=== PATIENT | female | born 1960 | race Caucasian/White ===

== ENCOUNTER 2024-02-20 19:33 | Emergency (ER) | payer OTHER, SELFPAY ==
[2024-02-20 19:53] VITALS: BP 148/91
[2024-02-21 00:10] VITALS: BP 132/63
[2024-02-21 00:13] VITALS: BMI 30.3
[2024-02-21 00:19] VITALS: BP 132/63
--- NOTE | 2024-02-21 00:48 | ED.GENMED ---
History of Present Illness
<Lillian Langford MD, Resident - Last Filed: 02/21/24 04:26>
General
Chief Complaint: Musculo-Skeletal Complaint
Source: patient and family
Exam Limitations: none
Time Seen by Provider: 02/21/24 00:44
Nursing documentation reviewed up to this point in time: agreed with
Travel History
Have you traveled to any high risk areas for coronavirus over the past 14 days?: No
Have you had any contact with someone who has COVID-19?: No
Do you have any symptoms of coronavirus? Fever > 100 degrees, chills, cough, shortness of breath, sore throat, loss of taste or smell, muscle aches, or headache?: No
History of Present Illness
History of Present Illness:
63-year-old female with past medical history of hypertension on medication, hyperlipidemia on statin, presents to the hospital for migratory polyarthralgias x 2 weeks. It was started in her right knee after [place] the [place],
as a throbbing and dull pain of 7/10 in intensity while at rest but excruciating and debilitating to 10/10 when she tries to move around. Her right knee pain lasted for only 1 day and then she started having left knee pain. Later she started
having pain in her ankle joints as well as wrist elbows and shoulder joints. The pain radiates to the back of her knees as well as into the triceps and biceps of her arms, and she has associated proximal muscle weakness with that. She complains
difficulty in sitting on the toilet commode seat and trying to get up from the commode seat, difficulty in raising her shoulders above her ears, right much worse than the left. Currently she also has small joints involved in her left hand with
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 There is some redness of her joints, but denies any swelling of her joints or hotness or rise of temperature
She denies having fevers, chills, rash, lightheadedness, dizziness, neck pain, neck stiffness, nausea, emesis, abdominal pain, constipation or diarrhea, shortness of breath, chest pain, palpitations, recent urinary tract infections or
hospitalizations.
She states that she has been in [place] and camping since the beginning of summer all year in [facility]. She could not recall if she had any tick bite. Denies having sick contacts or recent travel outside of [place].
Past History
<Lillian Langford MD, Resident - Last Filed: 02/21/24 04:26>
Past History
ED Past Medical History: Other (Hypertension, hyperlipidemia, GERD.)
ED Past Surgical History: Other (Benign lumpectomy many years ago.)
Patient has exhibited threatening behavior?: No
PSI?: No
Social History
Tobacco: Non-smoker
Alcohol: Occasional
Drug: None
Personal:
Living: with family
Employment: Employed
Family History
Family History: Other (Brain hemorrhage in her mother at the age of 80)
Review of Systems
<Lillian Langford MD, Resident - Last Filed: 02/21/24 04:26>
Review of Systems
Allergies reviewed?: Yes
Other source history: family
Constitutional: Reports fatigue; Denies sleep disturbance, night sweats or chills
EENT: Denies sore throat or runny nose
Respiratory: Reports no symptoms
Cardiac: Reports no symptoms
ABD/GI: Reports no symptoms
: Reports no symptoms
Musculoskeletal: Reports joint pain and muscle pain
Skin: Reports no symptoms
Neurological: Reports weakness; Denies dizzy, headache or numbness
Endocrine: Reports no symptoms
Hematologic/Lymphatic: Reports no symptoms
Psychiatric: Reports no symptoms
Phy Exam
<Lillian Langford MD, Resident - Last Filed: 02/21/24 04:26>
General Physical Exam
General Presentation: well appearing and no apparent distress
General age: appears stated age
General Skin: warm
General Habitus: normal
General Mental: alert
General Hydration: appears well hydrated
ENT Exam
ENT Exam: neck supple
Eye Exam
Eye Exam: other (Anisocoria noted.)
Cardiovascular Exam
Cardiovascular Exam: regular rate/rhythm, no edema, no gallop, no JVD and no murmur
Heart Sounds: normal
Pulmonary Exam
Pulmonary Exam: lungs clear, no respiratory distress, no rales and no rhonchi
Gastrointestinal Exam
Gastrointestinal Exam: normal bowel sounds, non tender, soft and non distended
Neurological Exam
Neurological Exam: alert, CN II-XII intact, no motor deficits, normal reflexs, no sensory deficits and speech normal
Motor
Gait: normal
Right upper extremity: 2
Right lower extremity: 5
Left upper extremity: 3
Left lower extremity: 5
Sensory
Sensory Exam: intact
Cerebellar
Cerebellar Function: normal finger to nose, normal heel to george and normal Romberg test
Reflexes
Reflexes: +2: Left patellar and +2: Right patellar
Babinski: normal: Bilateral
Musculoskeletal Exam
Musculoskeletal Exam: other (Range of motion limited in the right shoulder to 10 degrees in elevation, hypotonia and decreased strength in the biceps and triceps of the right hand, bilateral dockworker strength-3/5)
Skin Exam
Skin Exam: normal color and other (No petechia, rash, erythema noted.)
Course
<Lillian Langford MD, Resident - Last Filed: 02/21/24 04:26>
Orders/Labs/Results
Orders:
Orders
02/21/24 01:29
Add On- LAB Urgent
Tests Added?: Creatine kinase
02/21/24 02:08
CRP [C-Reactive Protein] Urgent
Complete Blood Count/With Diff Urgent
Comprehensive Metabolic Panel Urgent
Creatine Phosphokinase Urgent
Comment: ADD ON
Lyme Progressive Urgent
RPR [Syphilis/T. pallidum Ab Reflex] Urgent
Sed Rate [Erythrocyte Sed Rate] Urgent
Uric Acid Urgent
02/21/24 02:09
Ketorolac [Toradol] 30 mg IV NOW STA
02/21/24 03:49
Dexamethasone Sod Phosphate [Decadron] 10 mg IV NOW STA
Abnormal Lab Results
02/21/24
02:08
WBC 16.6 H 10^3/uL
(4.8-10.8)
Plt Count 458 H 10^3/uL
(130-400)
Abs Immat Gran (auto) 0.1 H 10^3/uL
(0-0.05)
Absolute Neuts (auto) 13.0 H 10^3/uL
(1.4-6.5)
Absolute Monos (auto) 1.2 H 10^3/uL
(0.1-0.6)
Neutrophils % 78.6 H %
(42.2-75.2)
Lymphocytes % 11.3 L %
(20.5-51.1)
ESR 45 H mm/hour
(0-20)
Chloride 96 L mmol/L
(98-107)
Carbon Dioxide 31 H mmol/L
(22-30)
Creatinine 0.5 L mg/dL
(0.6-1.0)
Glucose 122 H mg/dl
(70-99)
ALT 56 H U/L
(0-35)
Alkaline Phosphatase 161 H U/L
(38-126)
C-Reactive Protein 163.70 H mg/L
(0.0-10.00)
02/21/24 02:08
02/21/24 02:08
Creatinine kinase negative.
Lyme's and RPR serologies pending.
Vital Signs
Initial and Last Documented VS:
Initial Vital Signs
Temp Pulse Resp BP Pulse Ox
98.4 F 105 20 148/91 97
02/20/24 19:53 02/20/24 19:53 02/20/24 19:53 02/20/24 19:53 02/20/24 19:53
Last Documented Vital Signs
Temp Pulse Resp BP Pulse Ox
98.4 F 94 18 124/61 95
02/20/24 19:53 02/21/24 04:24 02/21/24 04:24 02/21/24 04:24 02/21/24 04:24
Shahramlt;Kendy Guevara, DO - Last Filed: 02/21/24 03:40>
Orders/Labs/Results
Orders:
Orders
02/21/24 01:29
Add On- LAB Urgent
Tests Added?: Creatine kinase
02/21/24 02:08
CRP [C-Reactive Protein] Urgent
Complete Blood Count/With Diff Urgent
Comprehensive Metabolic Panel Urgent
Creatine Phosphokinase Urgent
Comment: ADD ON
Lyme Progressive Urgent
RPR [Syphilis/T. pallidum Ab Reflex] Urgent
Sed Rate [Erythrocyte Sed Rate] Urgent
Uric Acid Urgent
02/21/24 02:09
Ketorolac [Toradol] 30 mg IV NOW STA
02/21/24 03:49
Dexamethasone Sod Phosphate [Decadron] 10 mg IV NOW STA
Abnormal Lab Results
02/21/24
02:08
WBC 16.6 H 10^3/uL
(4.8-10.8)
Plt Count 458 H 10^3/uL
(130-400)
Abs Immat Gran (auto) 0.1 H 10^3/uL
(0-0.05)
Absolute Neuts (auto) 13.0 H 10^3/uL
(1.4-6.5)
Absolute Monos (auto) 1.2 H 10^3/uL
(0.1-0.6)
Neutrophils % 78.6 H %
(42.2-75.2)
Lymphocytes % 11.3 L %
(20.5-51.1)
ESR 45 H mm/hour
(0-20)
Chloride 96 L mmol/L
(98-107)
Carbon Dioxide 31 H mmol/L
(22-30)
Creatinine 0.5 L mg/dL
(0.6-1.0)
Glucose 122 H mg/dl
(70-99)
ALT 56 H U/L
(0-35)
Alkaline Phosphatase 161 H U/L
(38-126)
C-Reactive Protein 163.70 H mg/L
(0.0-10.00)
02/21/24 02:08
02/21/24 02:08
Vital Signs
Initial and Last Documented VS:
Initial Vital Signs
Temp Pulse Resp BP Pulse Ox
98.4 F 105 20 148/91 97
02/20/24 19:53 02/20/24 19:53 02/20/24 19:53 02/20/24 19:53 02/20/24 19:53
Last Documented Vital Signs
Temp Pulse Resp BP Pulse Ox
98.4 F 94 18 124/61 95
02/20/24 19:53 02/21/24 04:24 02/21/24 04:24 02/21/24 04:24 02/21/24 04:24
<Lillian Langford MD, Resident - Last Filed: 02/21/24 04:26>
MDM/Problems Addressed
Differential Diagnosis Includes:
Suspect autoimmune etiology like rheumatoid arthritis, polymyalgia rheumatica, etc.
Due to elevated viral arthritis as an etiology could not be excluded-consider parvovirus B19, hep B/hep C
Lyme's, RPR pending.
MDM/Problems Addressed:
Toradol and Decadron given for inflammatory polyarthritis.
Chronic conditions affecting care: HTN
<Lillian Langford MD, Resident - Last Filed: 02/21/24 04:26>
*Pulse Oximetry
Patient hypoxic: no
*EKG
Interpreted by ED Provider?: NA
*Critical Care Note
Total Time (30-74mins, 75-104mins- exclusive of procedures): Not Applicable
Data Reviewed
Review of Other/Old Records Reveals: Labs and Records
<Lillian Langford MD, Resident - Last Filed: 02/21/24 04:26>
Update Note
Update Note:
With Toradol patient had no significant improvement in pain.
IV Decadron 10 mg given.
Plan to taper prednisone over the next 10 days discussed with patient.
ED Attending Note
<Lillian Langford MD, Resident - Last Filed: 02/21/24 04:26>
-
Portions of this chart may have been created with voice recognition software.� Occasional wrong word or��sound alike� substitutions may have occurred due to the inherent limitations of voice recognition software.
<Kendy Guevara DO - Last Filed: 02/21/24 03:40>
ED Attending Note
Patient seen and examined by attending physician: Yes
I performed a history and physical exam of patient and discussed management with resident, I reviewed resident's note and agree with documented findings and plan of care.: Yes
ED Attending Note:
This is a 63-year-old woman with history of hypertension, hyperlipidemia who was started on a diuretic as well as a statin a few months ago. She complains of 2-week history of migratory joint pain initially and 1 day and then the other knee and
then her left hand and now her right wrist as well as right shoulder and continues with some knee discomfort. Pain is much worse over the past day or 2 without accompanying swelling of her joints, no fever, no rash, no redness of her joints. No
history of similar episodes in the past.
She has been taking NSAIDs with sporadic, mild improvement.
Exam remarkable for moderate tenderness to the right shoulder, mild tenderness to the right wrist. There is no joint effusion, no erythema. Mildly restricted range of motion of right shoulder related to pain.
Patient presents with 2-week history of migratory arthropathy without associated fever nor joint swelling. Concern for inflammatory arthropathy such as gout, pseudogout, osteoarthritis, acute Lyme disease, less likely STD, less likely septic joint.
Will check labs, inflammatory markers, Lyme titer
Will give an IV dose of Toradol.
02/21/2024 0339 AM
Labs remarkable for mildly elevated white blood cell count, moderately elevated inflammatory markers with normal CPK. Normal uric acid. Lyme titer, RPR are pending.
Will initiate a course of diclofenac for pain control and recommend prompt follow-up with PCP and will refer to rheumatology as well.
Discharge Plan
Departure
Patient Disposition: Home (Routine Discharge)
Date of Disposition: 02/21/24
Time of Disposition: 03:58
Patient with high blood pressure during this ER visit?: Yes
Condition: Fair
Covid-19: Not Applicable
Discharge Problem:
Inflammatory polyarthropathy or polyarthritis
Instructions: BLOOD PRESSURE
Prescriptions:
New
prednisone 10 mg tablets,dose pack
10 mg PO DIRECTED 12 Days Qty: 12 0RF
Rx Instructions:
4tablets for 3 days, then
3 tablets for 3 days, then
2tablets for 3 days, then
1tablet for 3 days.
Referrals:
Kavya Bull MD [Consulting Staff] - Follow up in 5-7 days (Elevated CRP and ESR, excruciating and debilitating pain.)
Rickey Copeland MD [Family Provider] -
Activity Restrictions/Additional Instructions:
Avoid NSAIDs.
Take Tylenol for pain
Take prednisone tapering dose as prescribed.
Follow-up with your primary and establish care with rheumatology
Repeat CMP, CBC in 1 week.
Interventions
Interventions:
*Risk Screen - Suicide Last Done: 02/20/24 19:53
*General Assessment Last Done: 02/20/24 19:53
*Neglect/Abuse Screening Last Done: 02/20/24 19:53
ED- Fall Risk Assessment Last Done: 02/20/24 19:53
*ED COVID-19 Vaccine History Last Done: 02/20/24 19:53
*Nursing Disposition Last Done: 02/21/24 04:24
ED-Musculoskeletal Assessment Last Done: 02/21/24 00:16
ED-Peripheral Vascular Assessment Last Done: 02/21/24 00:17
ED-Skin Assessment Last Done: 02/21/24 00:18
Discharge Date and Time
Discharge Date/Time: 02/21/24 04:26
Print Language: YI
[2024-02-21 02:15] LABS: % Basophils 0.5 % (0-2); % Eosinophils 1.9 % (0-6); % Immature Granulocytes 0.5 % (0-0.5); % Lymphocytes 11.3 % (20.5-51.1); % Monocytes 7.2 % (1.7-9.3); % Neutrophils 78.6 % (42.2-75.2); Absolute Basophils 0.1 10^3/uL (0-0.2); Absolute Eosinophils 0.3 10^3/uL (0-0.7); Absolute Immature Granulocytes 0.1 10^3/uL (0-0.05); Absolute Lymphocytes 1.9 10^3/uL (1.2-3.4); Absolute Monocytes 1.2 10^3/uL (0.1-0.6); Hematocrit 39.7 % (37.0-47.0); Hemoglobin 14.1 g/dL (12.0-16.0); Mean Corp Hgb Conc. 35.5 g/dL (33.0-37.0); Mean Corpuscular Hgb 30.1 pg (27.0-31.0); Mean Corpuscular Volume 84.8 fL (81.0-99.0); Mean Platelet Volume 8.7 fL (7.4-10.4); Nucleated Red Blood Cells % 0 %; Platelet Count 458 10^3/uL (130-400); Red Blood Cell Count 4.68 10^6/uL (4.20-5.40); Red Cell Dist. Width 13.2 % (11.5-14.5); White Blood Cell Count 16.6 10^3/uL (4.8-10.8)
[2024-02-21 02:21] LABS: Erythrocyte Sed Rate 45 mm/hour (0-20)
[2024-02-21] MEDS: TORADOL 30 MG IV (02:21)
[2024-02-21 02:38] LABS: ALT (SGPT) 56 U/L (0-35); AST (SGOT) 33 U/L (14-36); Albumin 3.9 g/dl (3.5-5.0); Alkaline Phosphatase 161 U/L (38-126); Blood Urea Nitrogen 8 mg/dl (7-17); Calcium 9.9 mg/dl (8.4-10.2); Carbon Dioxide 31 mmol/L (22-30); Chloride 96 mmol/L (98-107); Creatine Phosphokinase 67 U/L (30-135); Estimated Creatinine Clearance 101 ml/min; Glucose 122 mg/dl (70-99); Potassium 3.8 mmol/L (3.5-5.1); Sodium 138 mmol/L (135-145); Total Bilirubin 0.7 mg/dl (0.2-1.3); Total Protein 7.1 g/dl (6.3-8.2); Uric Acid 3.7 mg/dl (2.5-6.2); eGFR > 60.00
[2024-02-21] MEDS: DECADRON 10 MG IV (03:55)
[2024-02-21 04:14] VITALS: BP 124/61
[2024-02-21 04:24] VITALS: BP 124/61
[2024-02-22 11:32] LABS: Lyme Antibody Screen, EIA Negative (Negative)
[2024-02-23 14:47] LABS: Syphilis/T. pallidum Ab Reflex Negative (Negative)
== END 2024-02-21 04:26 | disposition home or self-care (01) ==
LOC: EMR 19:33
PROVIDERS: EMERGENCY PHYSICIAN Emergency Medicine; FAMILY PHYSICIAN Internal Medicine
DX: M06.4 Inflammatory polyarthropathy (principal); E78.5 Hyperlipidemia, unspecified; I10 Essential (primary) hypertension; K21.9 Gastro-esophageal reflux disease without esophagitis
CPT/HCPCS: 96374; 96375; 99284; 80053; 82550; 84550; 85025; 85652; 86140; 86618; 86780